=== PATIENT | male | born 1985 | race Two or more races ===

== ENCOUNTER 2025-05-02 15:49 | Emergency (ER) | payer OTHER ==
[2025-05-02 18:19] LABS: BASOPHILS ABSOLUTE AUTO 0.1 K/mm3 (0.0-0.2); BASOPHILS PERCENT AUTO 0.8 % (0.0-1.0); EOSINOPHILS ABSOLUTE AUTO 0.1 K/mm3 (0.0-0.4); EOSINOPHILS PERCENT AUTO 0.9 % (0.0-6.0); IMMATURE GRAN ABSOLUTE AUTO 0.02 K/mm3 (0.00-0.05); IMMATURE GRAN PERCENT AUTO 0.3 % (0.0-0.4); LYMPHOCYTES ABSOLUTE AUTO 2.0 K/mm3 (1.0-4.8); LYMPHOCYTES PERCENT AUTO 32.0 % (24.0-44.0); MEAN PLATELET VOLUME 10.2 fl (9.4-12.4); MONOCYTES ABSOLUTE AUTO 0.4 K/mm3 (0.0-0.8); MONOCYTES PERCENT AUTO 6.4 % (0.0-8.0); NEUTROPHILS ABSOLUTE AUTO 3.8 K/mm3 (1.8-7.7); NEUTROPHILS PERCENT AUTO 59.6 % (41.0-71.0); NRBC ABSOLUTE 0.00 (0.00-0.02); NRBC PERCENT 0.0 % (0.0-0.2); PLATELET COUNT,PLT 176 K/mm3 (150-400); RED BLOOD CELL COUNT 6.79 M/mm3 (4.52-5.90); WHITE BLOOD CELL COUNT,WBC 6.38 K/mm3 (3.9-11.3)
[2025-05-02 18:45] LABS: A/G RATIO 1.1 (1-2); ALANINE AMINOTRANSFERASE,ALT 43.0 U/L (16-63); ASPARTATE AMNIOTRANSFERASE,AST 26.0 U/L (15-37); BILIRUBIN TOTAL 0.6 mg/dL (0.2-1.0); BLOOD UREA NITROGEN,BUN 17.0 mg/dL (7-18); CARBON DIOXIDE,CO2 23.0 mEq/L (21-32); CHLORIDE,CL 105.0 mEq/L (98-107); CREATININE 0.9 mg/dL (0.7-1.3); EST CRCL DRUG DOSING (CG) 110.91 mL/min; ESTIMATED GFR 112.0 mL/min (>60); GLUCOSE RANDOM 92.0 mg/dL (70-99); POTASSIUM,K 3.6 mEq/L (3.5-5.1); PROTEIN TOTAL,TP 7.4 g/dl (6.4-8.2); SODIUM,NA 140.0 mEq/L (136-145)
[2025-05-02] MEDS: Sodium Chloride 0.9% 10 ML Syringe FLUSH PRN (18:45)
[2025-05-02] MEDS: Iopamidol 612 MG/ML 100 ML Bottle IVPUSH ONE (18:58)
[2025-05-02] MEDS: Iopamidol 612 MG/ML 30 ML SDV IVPUSH ONE (18:58)
[2025-05-02 19:12] LABS: APPEARANCE,URINE CLEAR (Clear); GLUCOSE,URINE NEGATIVE (Negative); OCCULT BLOOD,URINE NEGATIVE (Negative)
== END 2025-05-02 19:49 | disposition home or self-care (01) ==
LOC: JD.ED 15:49
DX: M54.50 Low back pain, unspecified (principal); M25.551 Pain in right hip; Z86.16 Personal history of COVID-19
CPT/HCPCS: 36415; 71260; 73552; 73590; 74177; 80053; 81003; 83690; 85025; 96374; 99284; J2270; J7030; Q9967; 99283